=== PATIENT | male | born 1990 | race African-American/Black ===

== ENCOUNTER 2024-04-23 16:13 | Emergency (ER) | payer MEDICAID ==
[~2024-04-23] VITALS: Ht 162.6 cm; Wt 66.0 kg
[2024-04-23 16:16] VITALS: PULSE 85
[2024-04-23 16:19] VITALS: BP 154/94; RESP 16; TEMP 98.5; O2SAT 100
[2024-04-23] MEDS ORDERED: SODI15OR5 MT (17:46)
== END 2024-04-23 18:10 | disposition left against medical advice (07) ==
LOC: ER 16:13
DX: R20.8 Other disturbances of skin sensation (principal); I10 Essential (primary) hypertension; Z76.0 Encounter for issue of repeat prescription
CPT/HCPCS: 71045; 93005; 99283

== ENCOUNTER 2024-12-01 19:14 | Emergency (ER) | payer MEDICAID, OTHER ==
[~2024-12-01] VITALS: Ht 162.6 cm; Wt 70.8 kg
[~2024-12-01 19:14] MED LIST: SODI15OR5 MT
[2024-12-01 19:20] VITALS: O2SAT 99
[2024-12-01 20:32] LABS: BASOPHILS % 0.7 % (0.0-2.0); EOSINOPHILS % 9.8 % (0.0-5.0); HEMATOCRIT. 34.3 % (42.0-52.0); HEMOGLOBIN. 11.1 g/dL (14.0-18.0); MEAN CORPUSCULAR HEMOGLOBIN 27.5 pg (28.0-32.0); MEAN CORPUSCULAR HGB CONC 32.4 g/dL (31.0-37.0); MEAN CORPUSCULAR VOLUME 84.8 fL (80.0-94.0); MEAN PLATELET VOLUME 9.6 fl (7.4-10.4); MONOCYTES % 7.6 % (2.0-8.0); NEUTROPHILS % 50.9 % (40.0-76.0); PLATELET 124 x1000/uL (130-400); RED BLOOD CELL COUNT 4.05 mill/uL (4.7-6.1); RED CELL DISTRIBUTION WIDTH 13.8 % (11.6-14.6); WHITE BLOOD COUNT 3.2 x1000/uL (4.5-11.0)
[2024-12-01 20:36] LABS: CHLORIDE 110 mEq/L (98-107)
[2024-12-01 20:37] LABS: SODIUM 137 mEq/L (136-145)
[2024-12-01 20:38] LABS: CALCIUM 9.2 mg/dL (8.7-10.4); CARBON DIOXIDE 20 mEq/L (21-32)
[2024-12-01 20:42] LABS: CREATININE 2.8 mg/dL (0.6-1.3)
[2024-12-01 20:43] LABS: GLUCOSE 99 mg/dL (70-105); UREA NITROGEN BLOOD 47 mg/dL (9-23)
[2024-12-01 20:44] LABS: TROPONIN I HIGH SENSITIVITY 19 ng/L (3.0-53)
[2024-12-02 00:14] VITALS: BP 128/87; PULSE 71; RESP 20; TEMP 36.72516; O2SAT 99
== END 2024-12-02 00:16 | disposition home or self-care (01) ==
LOC: ER 19:14
DX: E87.5 Hyperkalemia (principal); I12.9 Hypertensive chronic kidney disease with stage 1 through stage 4 chronic kidney disease, or unspecified chronic kidney disease; N18.9 Chronic kidney disease, unspecified
CPT/HCPCS: 36415; 71045; 80048; 84484; 85025; 93005; 99285

== ENCOUNTER 2025-01-11 12:26 | Emergency (ER) | payer OTHER ==
[~2025-01-11] VITALS: Ht 172.7 cm; Wt 70.0 kg
[2025-01-11 12:53] VITALS: O2SAT 100
[2025-01-11 14:55] LABS: CLARITY URINE CLEAR (CLEAR); COLOR URINE YELLOW (YELLOW); GLUCOSE URINE NEGATIVE (NEGATIVE); KETONES URINE NEGATIVE (NEGATIVE); LEUKOCYTE ESTERASE URINE NEGATIVE (NEGATIVE); NITRITE URINE NEGATIVE (NEGATIVE); OCCULT BLOOD URINE NEGATIVE (NEGATIVE); PH URINE 5.5 (4.5-8.0); PROTEIN URINE NEGATIVE (NEGATIVE); SPECIFIC GRAVITY URINE 1.014 (1.005-1.030); UROBILINOGEN URINE 0.2 E.U./dL (0.2-1.0)
[2025-01-11 16:14] LABS: BASOPHILS % 0.8 % (0.0-2.0); EOSINOPHILS % 7.4 % (0.0-5.0); HEMATOCRIT. 34.1 % (42.0-52.0); LYMPHOCYTES % 34.8 % (20.0-50.0); MEAN CORPUSCULAR HEMOGLOBIN 27.9 pg (28.0-32.0); MEAN CORPUSCULAR HGB CONC 32.3 g/dL (31.0-37.0); MEAN CORPUSCULAR VOLUME 86.4 fL (80.0-94.0); MONOCYTES % 7.2 % (2.0-8.0); NEUTROPHILS % 49.8 % (40.0-76.0); PLATELET 117 x1000/uL (130-400); RED BLOOD CELL COUNT 3.94 mill/uL (4.7-6.1); RED CELL DISTRIBUTION WIDTH 13.6 % (11.6-14.6); WHITE BLOOD COUNT 3.4 x1000/uL (4.5-11.0)
[2025-01-11 16:30] LABS: CHLORIDE 110 mEq/L (98-107); SODIUM 141 mEq/L (136-145)
[2025-01-11 16:31] LABS: CALCIUM 8.5 mg/dL (8.7-10.4); CARBON DIOXIDE 25 mEq/L (21-32)
[2025-01-11 16:36] LABS: CREATININE 2.7 mg/dL (0.6-1.3); GLUCOSE 90 mg/dL (70-105); UREA NITROGEN BLOOD 37 mg/dL (9-23)
[2025-01-11 16:38] LABS: ALANINE AMINOTRANSFERASE 17 IU/L (10-49); ALBUMIN 3.8 g/dL (3.2-4.8); ASPARTATE AMINOTRANSFERASE 25 IU/L (<34); BILIRUBIN DIRECT 0.3 mg/dL (<=3.0)
[2025-01-11 16:39] LABS: PROTEIN TOTAL 7.1 g/dL (6.0-8.3)
[2025-01-11] MEDS: ACETAMINOPHEN 325MG TABLET PO ONE (18:02)
[2025-01-11] MEDS: CYCLOBENZAPRINE 10MG TABLET PO ONE (18:02)
[2025-01-11] MEDS ORDERED: CYCL5TAB3 MT (21:14)
[2025-01-11 21:38] VITALS: BP 163/93; PULSE 53; RESP 18; TEMP 36.8; O2SAT 100
== END 2025-01-11 21:41 | disposition home or self-care (01) ==
LOC: ER 12:35
DX: M54.50 Low back pain, unspecified (principal); I12.9 Hypertensive chronic kidney disease with stage 1 through stage 4 chronic kidney disease, or unspecified chronic kidney disease; N18.9 Chronic kidney disease, unspecified
CPT/HCPCS: 36415; 72100; 80048; 80076; 81003; 85025; 99284

== ENCOUNTER 2025-06-17 12:23 | Emergency (ER) | payer OTHER ==
[~2025-06-17] VITALS: Ht 167.6 cm; Wt 67.0 kg
[~2025-06-17 12:23] MED LIST changes: +CYCL5TAB3 MT
[2025-06-17 12:29] VITALS: O2SAT 100
[2025-06-17 13:40] LABS: CLARITY URINE CLEAR (CLEAR); COLOR URINE YELLOW (YELLOW); GLUCOSE URINE NEGATIVE (NEGATIVE); KETONES URINE NEGATIVE (NEGATIVE); LEUKOCYTE ESTERASE URINE NEGATIVE (NEGATIVE); NITRITE URINE NEGATIVE (NEGATIVE); OCCULT BLOOD URINE NEGATIVE (NEGATIVE); PH URINE 5.0 (4.5-8.0); PROTEIN URINE 1+ (NEGATIVE); SPECIFIC GRAVITY URINE 1.015 (1.005-1.030); UROBILINOGEN URINE 0.2 E.U./dL (0.2-1.0)
[2025-06-17 13:40] LABS: HEMATOCRIT. 36.9 % (42.0-52.0); HEMOGLOBIN. 12.2 g/dL (14.0-18.0); RED BLOOD CELL COUNT 4.34 mill/uL (4.7-6.1); RED CELL DISTRIBUTION WIDTH 13.6 % (11.6-14.6)
[2025-06-17 13:49] LABS: CREATININE 2.9 mg/dL (0.6-1.3)
[2025-06-17 13:50] LABS: UREA NITROGEN BLOOD 32.0 mg/dL (9-23)
[2025-06-17 14:12] LABS: BAND% 11.0 % (1.0-6.0); EOSINOPHILS % MANUAL 10.0 % (0.0-5.0); LYMPHOCYTES % MANUAL 37.0 % (20.0-50.0); MONOCYTES % MANUAL 11.0 % (2.0-8.0); NEUTROPHILS % MANUAL 31.0 % (45.0-75.0)
[2025-06-17 14:15] LABS: PLATELET ESTIMATE NORMAL
[2025-06-17 14:24] LABS: BACTERIA URINE TRACE
[2025-06-17 14:25] LABS: RBC URINE NONE SEEN /hpf (0-2); SQUAMOUS EPITHELIAL CELL URINE NONE SEEN /lpf (RARE/1+); WBC URINE 0-2 /hpf (0-2)
[2025-06-17] MEDS ORDERED: D-ME473S50 PO (14:49)
[2025-06-17] MEDS ORDERED: ACET-2708 MT (14:49)
[2025-06-17] MEDS ORDERED: MOLN200C PO (14:49)
[2025-06-17 15:26] VITALS: BP 147/102; PULSE 60; RESP 18; TEMP 36.9; O2SAT 100
== END 2025-06-17 15:29 | disposition home or self-care (01) ==
LOC: ER 12:32
DX: U07.1 COVID-19 (principal); I12.0 Hypertensive chronic kidney disease with stage 5 chronic kidney disease or end stage renal disease; E11.22 Type 2 diabetes mellitus with diabetic chronic kidney disease; N18.5 Chronic kidney disease, stage 5; Z79.899 Other long term (current) drug therapy
CPT/HCPCS: 36415; 71045; 80048; 81003; 85025; 87070; 87426; 87430; 99284

== ENCOUNTER 2025-10-15 14:01 | Emergency (ER) | payer OTHER ==
[~2025-10-15] VITALS: Ht 175.3 cm; Wt 70.0 kg
[~2025-10-15 14:01] MED LIST changes: +ACET-2708 MT; +D-ME473S50 PO; +MOLN200C PO
[2025-10-15 14:14] VITALS: O2SAT 99
[2025-10-15] MEDS: ASPIRIN 325MG TABLET PO ONE (14:35)
[2025-10-15 14:37] LABS: BASOPHILS % 1.2 % (0.0-2.0); EOSINOPHILS % 5.1 % (0.0-5.0); HEMATOCRIT. 35.9 % (42.0-52.0); HEMOGLOBIN. 11.5 g/dL (14.0-18.0); LYMPHOCYTES % 25.9 % (20.0-50.0); MEAN PLATELET VOLUME 9.4 fl (7.4-10.4); MONOCYTES % 6.6 % (2.0-8.0); NEUTROPHILS % 61.2 % (40.0-76.0); PLATELET 131 x1000/uL (130-400); RED BLOOD CELL COUNT 4.20 mill/uL (4.7-6.1); RED CELL DISTRIBUTION WIDTH 13.6 % (11.6-14.6)
[2025-10-15 14:50] LABS: CREATININE 2.6 mg/dL (0.6-1.3); UREA NITROGEN BLOOD 35 mg/dL (9-23)
[2025-10-15 14:51] LABS: TROPONIN I HIGH SENSITIVITY 18 ng/L (3.0-53)
[2025-10-15 14:52] LABS: ASPARTATE AMINOTRANSFERASE 19 IU/L (<34); BILIRUBIN DIRECT 0.4 mg/dL (<=3.0); BILIRUBIN TOTAL 1.4 mg/dL (0.1-1.0); PROTEIN TOTAL 7.2 g/dL (6.0-8.3)
[2025-10-15 19:00] VITALS: BP 156/100; PULSE 68; RESP 18; TEMP 37.1; O2SAT 100
== END 2025-10-15 19:15 | disposition short-term general hospital (02) ==
LOC: ER 14:50 → CMPBEDREQ 10-16 08:13
DX: I13.10 Hypertensive heart and chronic kidney disease without heart failure, with stage 1 through stage 4 chronic kidney disease, or unspecified chronic kidney disease (principal); I24.9 Acute ischemic heart disease, unspecified; N18.9 Chronic kidney disease, unspecified; Z98.890 Other specified postprocedural states; Z79.899 Other long term (current) drug therapy
CPT/HCPCS: 36415; 71045; 80048; 80076; 83735; 83880; 84484; 85025; 93005; 99285